=== PATIENT | male | born 1940 | race Caucasian/White ===

== ENCOUNTER 2016-10-19 13:45 | Inpatient (IN) | payer MEDICARE, BC ==
[~2016-10-19] VITALS: Ht 172.7 cm; Wt 40.4 kg
[~2016-10-19 13:45] MED LIST: ALB0.5V INH; ALBU2.5V12 INH; APIX2.5T2 PO; ATOR10TA PO; AZTH250C PO; CEFD300C PO; CHOL10002 PO; CLPD75T PO; LORA0.5T PO; MIRT15TA8 PO; SODIUM CHLORIDE IH; TIOT18CA IH
--- OUTSIDE RECORDS SUMMARY | 2016-10-19 13:49 | XMS REPORT | Continuity of Care Document ---
Author Author [facility] Organization [facility] Address Unknown Phone Unavailable Care Team Providers Care Laborer [place]bark Name Role Phone MUKUL, ISABELLA Beckman MD PCP [phone] Insurance Providers Payer Name Policy Number Subscriber Name Relationship Medicare A And B [id number] Lili Murillo 17 Self / Same As Patient [facility] [id number] Lili Murillo Self / Same As Patient Chief Complaint and Reason for Visit Chief Complaint PNEUMONIA Reason for Visit Pneumonia COPD exacerbation Sepsis CHF (congestive heart failure) Atrial fib/flutter, transient Steroid-induced psychosis, with hallucinations Problems Medical Problems Problem Onset Date Status Pneumonia 12/19/2014 Active COPD exacerbation 12/19/2014 Active Sepsis 12/19/2014 Active CHF (congestive heart failure) 12/19/2014 Active Atrial fib/flutter, transient Unknown Active Steroid-induced psychosis, with hallucinations Unknown Active Medications Medication Dose Route Sig Days/Qty Instructions Order Date Discontinued Date Status Clopidogrel Bisulfate (Plavix) 75 Mg ORAL DAILY 12/19/14 12/25/14 Discontinued Atorvastatin 10 Mg ORAL DAILY 12/19/14 Active Mirtazapine 15 Mg ORAL BEDTIME 12/19/14 Active Tiotropium [place] 18 Mcg RESPIRATORY (INHALATION) DAILY@1700 1 Qty Active [Sodium Cl For Inhalation] 4 Ml RESPIRATORY (INHALATION) TWICE A DAY 5 Days 12/25/14 Active Lorazepam 0.5 Mg ORAL EVERY 4 HRS ON SCHEDULE PRN anxiety 10 Qty Active Cholecalciferol 2,000 Unit ORAL DAILY 60 Qty 12/25/14 Active Cefdinir (Omnicef) 300 Mg ORAL EVERY 12 HRS ON SCHEDULE 20 Qty Active Azithromycin 250 Mg ORAL DAILY 3 Qty 12/25/14 Active Apixaban 5 Mg ORAL TWICE A DAY 60 Qty 12/25/14 Active Albuterol 2.5 Mg RESPIRATORY (INHALATION) FOUR TIMES DAILY 120 Qty Active Albuterol Sulfate 2.5 Mg RESPIRATORY (INHALATION) Q2H PRN DYSPNEA 30 Qty 12/25/14 Active Social History No social history. Hospital Discharge Instructions Patient's Instructions Instructions Orders DISCHARGE: Discharge to:: SNF Xfer Skilled Nurse Facill Plan of Care Discharge Date 12/25/14 2:15pm Disposition 03 XFER [facility] Instructions/Education Provided Congestive Heart Failure (GEN) Prescriptions See Medications Section Functional Status No functional status results. Allergies, Adverse Reactions, Alerts Allergen Type Severity Reaction Status Last Updated No Known Drug Allergies Active 12/19/14 Immunizations No immunization records. Vital Signs Acute Vital Signs Vital Response Date/Time Temperature (Fahrenheit) 98.8 Pulse 81 bpm Respirations 16 Height 5 ft 7 in Weight 118 lb Body Mass Index 18.5 kg/m^2 Results Test Source Date Result Interp. Ref. Range Comments Absolute Band Neutrophils December 23, 2014 6:00am 0.6 # Collected by nurse? N Activated Partial Thromboplast Time December 19, 2014 1:17pm 40.0 SEC H 24.9-35.9 Alanine Aminotransferase (ALT/SGPT) December 19, 2014 1:17pm 16 U/L L 30- 65 Albumin December 19, 2014 1:17pm 3.8 g/dL N 3.4-5.0 Albumin/Globulin Ratio December 19, 2014 1:17pm 1.117 N 1.1-1.8 Alkaline Phosphatase December 19, 2014 1:17pm 85 U/L N 38-126 Anion Gap December 23, 2014 6:00am 12.0 MEQ/L N 3-15 Collected by nurse? N Aspartate Amino Transf (AST/SGOT) December 19, 2014 1:17pm 52 U/L H 15-37 B-Type Natriuretic Peptide December 24, 2014 6:00am 398 PG/ML H 0-100 Collected by nurse? N BUN/Creatinine Ratio December 23, 2014 6:00am 24 H 10-20 Collected by nurse? N Band Neutrophils % December 23, 2014 6:00am 2 % N 0-6 Collected by nurse? N Basophils # (Auto) December 19, 2014 1:17pm Basophils % (Manual) December 23, 2014 6:00am 0 % N 0-2 Collected by nurse ? N Basophils (%) (Auto) December 19, 2014 1:17pm 0-2 Blood Morphology Comment December 23, 2014 6:00am Normal NORMAL Collected by nurse? N Blood Urea Nitrogen December 23, 2014 6:00am 24 mg/dL DH 7-18 Collected by nurse? N C-Reactive Protein December 25, 2014 5:20am 4.60 MG/DL H 0.0-0.9 Collected by nurse? N Calcium Level December 23, 2014 6:00am 9.6 mg/dL N 8.8-10.8 Collected by nurse? N Calcium/Ionized Calcium Ratio December 19, 2014 1:17pm 3.9 mg/dL N 3.8-4.6 Calculated Osmolality December 19, 2014 1:17pm 276 mosm/L L 280-300 Carbon Dioxide Level December 23, 2014 6:00am 31 mmol/L H 22-29 Collected by nurse? N Chloride Level December 23, 2014 6:00am 105 mmol/L N 98-108 Collected by nurse? N Creatinine December 23, 2014 6:00am 0.98 mg/dL N 0.8-1.5 Collected by nurse? N Differential Total Cells Counted December 23, 2014 6:00am 100 Collected by nurse? N Eosinophils # December 23, 2014 6:00am 0.0 # Collected by nurse? N Eosinophils # (Auto) December 19, 2014 1:17pm Eosinophils % (Manual) December 23, 2014 6:00am 0 % N 0-4 Collected by nurse? N Eosinophils (%) (Auto) December 19, 2014 1:17pm 0-4 Estimat Glomerular Filtration Rate December 23, 2014 6:00am 90.2 Collected by nurse? N Estimated GFR (Non- December 23, 2014 6:00am 74.6 Collected by nurse? N Glucose Level December 23, 2014 6:00am 138 mg/dL H 70-110 Collected by nurse? N Hematocrit December 23, 2014 6:00am 36.90 % L 39.00-50.00 Collected by nurse? N Hemoglobin December 23, 2014 6:00am 11.9 g/dL L 13.5-17.0 Collected by nurse? N Influenza Virus Type A Antibody December 19, 2014 11:50am Negative Influenza Virus Type B Antibody December 19, 2014 11:50am Negative Lymphocytes # December 23, 2014 6:00am 3.2 # Collected by nurse? N Lymphocytes # (Auto) December 19, 2014 1:17pm Lymphocytes % (Manual) December 23, 2014 6:00am 11 % L 20-46 Collected by nurse? N Lymphocytes (%) (Auto) December 19, 2014 1:17pm 20-46 Mean Corpuscular Hemoglobin December 23, 2014 6:00am 29.6 PG N 26.0-34.0 Collected by nurse? N Mean Corpuscular Hemoglobin Concent December 23, 2014 6:00am 32.2 g/dL N 31.0-37.0 Collected by nurse? N Mean Corpuscular Volume December 23, 2014 6:00am 92 FL N 80-100 Collected by nurse? N Mean Platelet Volume December 23, 2014 6:00am 11.2 FL H 6.0-9.5 Collected by nurse? N Metamyelocytes % December 22, 2014 5:15am 1 % N 0-1 Collected by nurse? N Monocytes # December 23, 2014 6:00am 1.5 # Collected by nurse? N Monocytes # (Auto) December 19, 2014 1:17pm Monocytes % (Manual) December 23, 2014 6:00am 5 % N 3-11 Collected by nurse? N Monocytes (%) (Auto) December 19, 2014 1:17pm 3-11 Neutrophils # December 23, 2014 6:00am 23.9 # Collected by nurse? N Neutrophils # (Auto) December 19, 2014 1:17pm Neutrophils (%) (Auto) December 19, 2014 1:17pm 51-67 Platelet Count December 23, 2014 6:00am 477 10^3uL H 150-450 Collected by nurse? N Potassium Level December 23, 2014 6:00am 3.6 mmol/L N 3.5-5.1 Collected by nurse? N Prothromb Time International Ratio December 19, 2014 1:17pm 1.1 N 0.8-1.4 Prothrombin Time December 19, 2014 1:17pm 14.0 SEC N 11.9-14.2 Red Blood Count December 23, 2014 6:00am 4.02 10^6uL L 4.50-5.50 Collected by nurse? N Red Cell Distribution Width December 23, 2014 6:00am 14.8 % N 11.8-15.6 Collected by nurse? N Segmented Neutrophils % December 23, 2014 6:00am 82 % H 51-67 Collected by nurse? N Sodium Level December 23, 2014 6:00am 144 mmol/L N 135-150 Collected by nurse? N Total Bilirubin December 19, 2014 1:17pm 0.8 mg/dL N 0.1-1.0 Total Protein December 19, 2014 1:17pm 7.2 g/dL N 6.4-8.5 Urine Bacteria December 19, 2014 1:30pm None seen /HPF Urine collection method Clean Catch Urine Bilirubin December 19, 2014 1:30pm 1+ H Negative Indican, Lodine metabolite and atypical colors mayinterfere with the interpretation of the Bilirubin reaction. Further testing is required for confirmation. Urine Clarity December 19, 2014 1:30pm Clear Urine collection method Clean Catch Urine Collection Type December 19, 2014 1:30pm Catheter Urine collection method Clean Catch Urine Color December 19, 2014 1:30pm Dark yellow Urine collection method Clean Catch Urine Glucose (UA) December 19, 2014 1:30pm Negative Negative Urine collection method Clean Catch Urine Ketones December 19, 2014 1:30pm Negative Negative Urine collection method Clean Catch Urine Leukocyte Esterase December 19, 2014 1:30pm Negative Negative Urine collection method Clean Catch Urine Mucus December 19, 2014 1:30pm 1+ Urine collection method Clean Catch Urine Nitrite December 19, 2014 1:30pm Negative Negative Urine collection method Clean Catch Urine Protein December 19, 2014 1:30pm 2+ H Negative Urine collection method Clean Catch Urine RBC December 19, 2014 1:30pm 20-50 /HPF Urine collection method Clean Catch Urine RBC (Auto) December 19, 2014 1:30pm 2+ H Negative Urine collection method Clean Catch Urine Specific Craig December 19, 2014 1:30pm >=1.030 1.005-1.030 Urine collection method Clean Catch Urine Squamous Epithelial Cells December 19, 2014 1:30pm None /LPF Urine collection method Clean Catch Urine Urobilinogen December 19, 2014 1:30pm 0.2 mg/dL 0.2-1.0 Urine collection method Clean Catch Urine WBC December 19, 2014 1:30pm None seen /HPF Urine collection method Clean Catch Urine pH December 19, 2014 1:30pm 6.0 5.0 - 8.0 Urine collection method Clean Catch Vancomycin Level Trough December 21, 2014 8:25am 7.7 UG/ML L 10.0-15.0 Collected by nurse? N Volume Urine Centrifuged December 19, 2014 1:30pm 12 ml Urine collection method Clean Catch White Blood Count December 23, 2014 6:00am 29.20 10^3uL H 4.0-11.0 Collected by nurse? N Whole Blood Lactic Acid December 19, 2014 5:56pm 1.6 mmol/L N 0.7-2.1 Blood Culture Peripheral-:Lab Indicates After Collectio December 20, 2014 5: 06am No Growth in 4 days Gram Stain Sputum-Expectorated December 21, 2014 10:50am Procedures No known history of procedures. Encounters Encounter Location Date/Time Discharged Inpatient [facility] 12/19/14 2:48pm Registered Clinic [facility] 12/19/14 11:20am Recent Diagnosis Pneumonia COPD exacerbation Sepsis CHF (congestive heart failure) Atrial fib/flutter, transient Steroid-induced psychosis, with hallucinations
--- OUTSIDE RECORDS SUMMARY | 2016-10-19 13:51 | XMS REPORT | Continuity of Care Document ---
Author Author [facility] Organization [facility] Address Unknown Phone Unavailable Care Team Providers Care Machine Fancy Stitcher Name Role Phone MUKUL, ISABELLA Beckman MD PCP [phone] Insurance Providers Payer Name Policy Number Subscriber Name Relationship Medicare A And B [id number] Lili Murillo 17 Self / Same As Patient [facility] [id number] Lili Murillo Self / Same As Patient [...] 15 Mg ORAL BEDTIME 12/19/14 Active Tiotropium [place] 18 Mcg RESPIRATORY (INHALATION) DAILY@1700 1 Qty [...] Discharge Date 12/25/14 2:15pm Disposition 03 XFER [facility] Instructions/Education Provided Congestive Heart Failure (GEN) Prescriptions [...] Urine collection method Clean Catch Urine Specific Ophelia December 19, 2014 1:30pm >=1.030 1.005-1.030 Urine [...] procedures. Encounters Encounter Location Date/Time Discharged Inpatient [facility] 12/19/14 2:48pm Registered Clinic [facility] 12/19/14 11:20am Recent Diagnosis Pneumonia COPD exacerbation Sepsis CHF (congestive heart failure) Atrial fib/flutter, transient Steroid-induced psychosis, with hallucinations
[2016-10-19 14:16] LABS: MEAN CORPUSCULAR HEMOGLOBIN 30.9 PG (26.0-34.0); MEAN CORPUSCULAR HGB CONC 32.5 g/dL (31.0-37.0); MEAN CORPUSCULAR VOLUME 95 FL (80-100); MEAN PLATELET VOLUME 12.3 FL (6.0-9.5); PLATELET COUNT 331 10^3uL (150-450); WHITE BLOOD COUNT 17.66 10^3uL (4.0-11.0)
[2016-10-19 14:29] LABS: ALBUMIN 4.7 g/dL (3.4-5.0); ALKALINE PHOSPHATASE 100 U/L (38-126); ANION GAP 27.9 MEQ/L (3-15); BUN/CREATININE RATIO 34 (10-20); CALCULATED IONIZED CALCIUM 4.2 mg/dL (3.8-4.6); LIPASE* 129 U/L (23-300)
[2016-10-19 14:30] LABS: BAND NEUTROPHILS % 0 % (0-6); EOSINOPHILS % 4 % (0-4); LYMPHOCYTES # 6.7 #; MONOCYTES # 0.7 #; MONOCYTES % 4 % (3-11); RBC MORPH NORMAL (NORMAL); SEGMENTED NEUTROPHILS % 54 % (51-67); TOTAL CELLS COUNTED 100
--- NOTE | 2016-10-19 14:40 | Diagnostic Imaging Report ---
INDICATION: Shortness of breath, weakness. COMPARISON: 12/24/14 FINDINGS: Frontal and lateral views of the chest demonstrate large left-sided pneumothorax. There is some slight mediastinal shift. There is no infiltrate. Heart size is stable. No large effusion. Osseous structures are normal. IMPRESSION: Large left sided pneumothorax. Report called to the ER. Dictated by: Dictated on workstation # [id number]
--- NOTE | 2016-10-19 14:41 | Diagnostic Imaging Report ---
PROCEDURE: CT head without contrast. TECHNIQUE: Multiple contiguous axial images were obtained through the brain without the use of intravenous contrast. INDICATION: Weakness COMPARISON: None. IMPRESSION: FINDINGS: Mild age-related cerebral volume loss and chronic small vessel ischemic changes are present. There is no midline shift or mass effect. There is no focus of acute ischemia or hemorrhage. No extra-axial fluid collection seen. Dictated by: Dictated on workstation # [id number]
[2016-10-19] MEDS ORDERED: LIDOCAINE 1% (XYLOCAINE) 20 ML VIAL ONE (14:57)
[2016-10-19] MEDS ORDERED: LIDOCAINE 1% (XYLOCAINE) 20 ML VIAL INJ ONE (15:00)
--- NOTE | 2016-10-19 15:18 | NUR ---
Dr. Cross arrives.
--- NOTE | 2016-10-19 15:26 | NUR ---
surgeon Dr. Tomasz Cross in room.
[2016-10-19] MEDS ORDERED: MIDAZOLAM 2 MG/2 ML (VERSED) VIAL ONE (15:34)
--- NOTE | 2016-10-19 15:45 | NUR ---
See surgeon report and anesthesia report for chest tube insertion record.
--- NOTE | 2016-10-19 15:46 | NUR ---
talked with x-, she states pt told her he got sick 2 days ago, she checks in on him once a wk by telephone, says she does not know how often he eats or drinks, knows he goes to [employer] sometimes. was at [facility] 2 years ago after collapsing, brigette
--- NOTE | 2016-10-19 16:17 | Post Operative Note (E) ---
Post Op Note 10/19/16 16:14 Pre-Operative Diagnosis: Spontaneous left ptx Post-Operative Diagnosis: Same Procedure: Left thoracostomy tube Surgeon: [employer] Project Manager: None Findings: 40% pneumothorax on CXR$ Anesthesia: Local, IVCS EBL: Minimal Drains: 20fr chest tube Specimem: None Complications None Condition: Stable. Note dictated #[id number] JONAS CARDONA MD Oct 19, 2016 16:17
--- NOTE | 2016-10-19 16:37 | Diagnostic Imaging Report ---
Indication: Chest pain Portable chest 4:25 PM There is left thoracostomy tube in place with interval decompression of the left pneumothorax. There is air trapping in both lungs. Impression: There's been interval placement of a left thoracostomy tube with evacuation of the pneumothorax. Dictated by: Dictated on workstation # [id number]
[2016-10-19 17:00] VITALS: BP 155/55
[2016-10-19] MEDS ORDERED: PIPERACILLIN/TAZOBACTAM 3.375 GM (ZOSYN) VIAL IV ONE (17:25)
[2016-10-19] MEDS ORDERED: SODIUM CHLORIDE 100 ML ONE (17:28)
[2016-10-19] MEDS ORDERED: NS FLUSH 3 ML PRN IV (17:30)
[2016-10-19] MEDS ORDERED: NS FLUSH 10 ML PRN IV (17:30)
[2016-10-19] MEDS: PIPERACILLIN/TAZOBACTAM 3.375 GM in SODIUM CHLORIDE 100 ML IV SCH (17:47)
[2016-10-19] MEDS ORDERED: ONDANSETRON 2 MG/ML (Z0FRAN) 2 ML VIAL IV PRN (17:55)
[2016-10-19] MEDS ORDERED: POLYETHYLENE GLYCOL 17 GM (MIRALAX) PACKET PO PRN (17:55)
[2016-10-19] MEDS ORDERED: D5 1/2 NS IV 1,000 ML IV SCH (17:55)
[2016-10-19] MEDS ORDERED: DOCUSATE SODIUM 100 MG (COLACE) CAP PO PRN (17:55)
[2016-10-19] MEDS ORDERED: CALCIUM CARBONATE CHEWABLE 300 MG (TUMS) TABLET PO PRN (17:55)
[2016-10-19] MEDS ORDERED: MAG HYDROX/AL HYDROX/SIMETH 200-200-20/5 ML (MAG-AL PLUS) 30 ML UDC PO PRN (17:55)
[2016-10-19] MEDS ORDERED: PROMETHAZINE HCL INJ 12.5 MG in SODIUM CHLORIDE 25 ML IV PRN (17:55)
[2016-10-19] MEDS ORDERED: MAGNESIUM HYDROXIDE 80MG/ML (MILK OF MAGNESIA) 30 ML UDC PO PRN (17:55)
--- NOTE | 2016-10-19 18:24 | History and Physical (E) ---
History & Physical PCP: Pepe Myers MD CC: Confusion, weakness HPI Rad Kumari is a 76 year old male admitted from ED 10/19 where he presented from home with his ex-. Both were confused in triage but ex- reported that he was unwell and she took him to see PCP at [facility] in [place] but that "no one was there." Registered as ED patient. Patient was not verbalizing much history at all. Afebrile in ED with HR 90, RR 26, BP 122/60 , SpO2 95% on RA initially. Workup notable for WBC 17.66 with Hgb 16.1, plt 331. 54% N with no bands. Chemistry showed Na 151, BUN 42, Cr 1.23, CRP 3.70. TSH 2.18. Troponin 0.023. Serum alcohol negative. CXR showed a remarkable left pneumothorax. Surgery was consulted in ED for chest tube placement which was effective. He was admitted to ICU for further management. On arrival to unit, severely cachectic body habitus noted. Obtunded, but noted he received midazolam for chest tube placement. Pupils are sluggish but equal and reactive. He has some intermittent grimacing but isn't localizing stimuli at present. Minimal history was obtained from the limited amount of prior documentation in the medical record. No family were present during admit exam. Of note, ED physician reported that patient was mouthing some words to questions asked but apparently wasn't able to phonate. Uncertain if this is result of pneumothorax or if this is an acute or subacute problem. ED physician also asked about code status. Ex- reported she thought he was DNR but when asked, by ED physician, patient apparently responded he would want resuscitated. PMH * multi-infarct dementia * HLD * Pneumonia 2015 * COPD * Atrial fibrillation PSH None? ALLERGIES: Please see list at end of report. HOME MEDICATIONS: Please see list at end of report. FH Unknown SH Retired and . He lives alone, but his ex- does check up on him some. History of tobacco abuse. No reported alcohol or drug use. ROS Minimal review of systems available from patient because he is not answering questions very well. OBJECTIVE Vital Signs Date Time Temp Pulse Resp B/P Pulse Ox O2 Delivery O2 Flow Rate FiO2 10/19/16 17:00 96.9 87 28 99 Non-Rebreather mask 10/19/16 13:56 122/60 GEN: Obtunded. Does not withdraw to stimuli. HEENT: Eyes closed. On exam, pupils are equal, sluggish but reactive, 3 mm. Very dry oral mucosa. Marked facial and temporal wasting. Trachea midline. CV: Tachy, regular, with systolic flow murmur. LUNGS: Diminished with rapid, shallow, breathing. Some breath sounds audible onleft. ABD: Sunken, soft. Abdominal aortic bruit. EXTR: Extensive muscle wasting. INTEG: Very thin skin, dry skin, age related changes. Mottled knees. NEURO: Obtunded. Laboratory Results-14 Days 10/19/16 14:05: Absolute Band Neutrophils 0.0, Alanine Aminotransferase (ALT/SGPT) 15L, Albumin 4.7#, Albumin/Globulin Ratio 1.424, Alkaline Phosphatase 100, Anion Gap 27.9H, Aspartate Amino Transf (AST/SGOT) 38H, BUN/Creatinine Ratio 34H, Band Neutrophils % 0, Basophils # (Auto) , Basophils # (Manual) 0.0, Basophils % ( Manual) 0, Basophils (%) (Auto) , Blood Morphology Comment Normal, Blood Urea Nitrogen 42#H, C-Reactive Protein 3.70H, Calcium Level 10.2, Calcium/Ionized Calcium Ratio 4.2, Calculated Osmolality 306H, Carbon Dioxide Level 27, Chloride Level 101, Creatine Kinase MB 6.8H, Creatinine 1.23, D-Dimer 1231*H, Differential Total Cells Counted 100, Eosinophils # 0.7, Eosinophils # (Auto) , Eosinophils % (Manual) 4, Eosinophils (%) (Auto) , Estimat Glomerular Filtration Rate 69.0, Estimated GFR (Non- 57.1, Glucose Level 169#H, HIV P24 Antigen Negative, HIV-1 Antibody Rapid Screen Negative, Hematocrit 49.60, Hemoglobin 16.1, Lipase 129, Lymphocytes # 6.7, Lymphocytes # (Auto) , Lymphocytes % (Manual) 38, Lymphocytes (%) (Auto) , Mean Corpuscular Hemoglobin 30.9, Mean Corpuscular Hemoglobin Concent 32.5, Mean Corpuscular Volume 95, Mean Platelet Volume 12.3H, Metamyelocytes % 0, Monocytes # 0.7, Monocytes # (Auto) , Monocytes % (Manual) 4, Monocytes (%) (Auto) , Neutrophils # 9.5, Neutrophils # (Auto) , Neutrophils (%) (Auto) , Platelet Count 331, Potassium Level 4.4#, Prealbumin 19, Prothromb Time International Ratio 1.1, Prothrombin Time 12.1, Red Blood Count 5.21, Red Cell Distribution Width 15.7H, Segmented Neutrophils % 54, Serum Alcohol < 10.0L, Sodium Level 151H, Thyroid Stimulating Hormone (TSH) 2.18, Total Bilirubin 0.8, Total Creatine Kinase 147, Total Protein 8.0, Troponin I 0.023, White Blood Count 17.66H 10/19/16 14:50: Streptococcus Screen Negative 10/19/16 15:05: Bedside Venous Blood Total CO2 34, Blood Gas Instrument om, Blood Gas Liter Flow 10.0, Blood Gas Puncture Site R, Venous Blood Base Excess 2.0L, Venous Blood HCO3 31.0H, Venous Blood O2 Saturation (Calc) 15L, Venous Blood pCO2 at Patient Temp 89H, Venous Blood pH 7.15L, Venous Blood pO2 at Patient Temp 17*L MICRO 10/19 Blood culture PENDING 10/19 HIV Negative IMAGING 10/19/16 CHEST 1 VIEW, AP/PA ONLY* Indication: Chest pain Portable chest 4:25 PM There is left thoracostomy tube in place with interval decompression of the left pneumothorax. There is air trapping in both lungs. Impression: There's been interval placement of a left thoracostomy tube with evacuation of the pneumothorax. 10/19/16 CT HEAD WO PROCEDURE: CT head without contrast. TECHNIQUE: Multiple contiguous axial images were obtained through the brain without the use of intravenous contrast. INDICATION: Weakness COMPARISON: None. IMPRESSION: FINDINGS: Mild age-related cerebral volume loss and chronic small vessel ischemic changes are present. There is no midline shift or mass effect. There is no focus of acute ischemia or hemorrhage. No extra-axial fluid collection seen. 10/19/16 CHEST PA/LAT (2 VIEW)* INDICATION: Shortness of breath, weakness. COMPARISON: 12/24/14 FINDINGS: Frontal and lateral views of the chest demonstrate large left-sided pneumothorax. There is some slight mediastinal shift. There is no infiltrate. Heart size is stable. No large effusion. Osseous structures are normal. IMPRESSION: Large left sided pneumothorax. ASSESSMENT Rad Kumari is a 76 year old male admitted from ED 10/19 with spontaneous pneumothorax of uncertain etiology. He appeared malnourished and has reportedly had weakness and clinical demonstrates failure to thrive. He has dementia. PLAN * SIRS: Monitor for infection. Blood culture pending. Empiric pip-tazo. * Acute Respiratory Failure: Treat pneumothorax. Oxygen protocol. * Left Pneumothorax: Large air pocket noted on initial x-ray. Good resolution with chest tube placement but surgery in ED. Surgery following. Chest tube to suction. * Cachexia, Severe Protein Calorie Malnutrition: Suspect failure to thrive due to dementia. Possible food insecurity. Lawn Mower Sharpener consult. * Dysphonia, Dysphagia: ST eval swallow, eval speech. NPO until evaluated. * Dehydration: On the basis of labs, exam. Check UA. NS bolus in ED. Maintenance fluids. * Hypernatremia: Due to dehydration. IVF. Monitor trend. * Physical Deconditioning: PT/OT eval and treat if he improves. * F/E/N: NPO pending ST eval. Peripheral IV. D5 1/2 NS + 20 KCl. * Prophylaxis: SCDs * Code Status: Full code at this time. Would not be expected to survive CPR. * Dispo: Inpatient, ICU, expecting 3-4 day stay minimum. Very poor prognosis. CHRONIC ISSUES * Dementia: Observe * Atrial fibrillation: Rhythm on admit ST. Observe. Allergies/Home Medications Allergies: Coded Allergies: No Known Drug Allergies (Unverified , 12/19/14) Reported Home Medications Discontinued Medications ([Sodium Cl For Inhalation]) 4 ML IH BID Discontinued Reason: Course completed Albuterol (Proventil 0.5%) 2.5 MG INH QID Discontinued Reason: Unknown Albuterol Sulfate (Proventil 0.083%) 2.5 MG INH Q2H PRN PRN DYSPNEA Discontinued Reason: Unknown Apixaban (Eliquis) 5 MG PO BID Discontinued Reason: Unknown Atorvastatin (Lipitor) 10 MG PO DAILY (Reported) Discontinued Reason: Unknown Azithromycin (Zithromax) 250 MG PO DAILY Discontinued Reason: Unknown Cefdinir (Cefdinir) 300 MG PO Q12HR Discontinued Reason: Unknown Cholecalciferol (Vitamin D3) (Vitamin D3) 2,000 UNIT PO DAILY Discontinued Reason: Unknown Lorazepam (Ativan) 0.5 MG PO Q4HR PRN PRN anxiety Discontinued Reason: Unknown Mirtazapine (Mirtazapine) 15 MG PO HS (Reported) Discontinued Reason: Unknown Tiotropium [place] (Spiriva) 18 MCG IH DAILY@1700 Discontinued Reason: Unknown Copies to: End of Report . ANNI MEDINA MD Oct 19, 2016 18:13
[2016-10-19 19:13] VITALS: BP 151/52
[2016-10-19 20:00] VITALS: BP 123/49
[2016-10-19] MEDS: HYDROmorphone 1 MG/ML (DILAUDID) SYRINGE IV PRN (20:44)
--- NOTE | 2016-10-19 20:45 | NUR ---
Brows furrowed, 0.5 mg of 1 mg Dilaudid ordered.
--- NOTE | 2016-10-19 21:15 | NUR ---
O2 now on 3L/nc. SPO2 100%. Eyes open, shakes head yes or no, oral cares provided.
[2016-10-19 21:22] LABS: ALBUMIN 3.4 g/dL (3.4-5.0); ANION GAP 14.4 MEQ/L (3-15); PHOSPHORUS 4.2 mg/dL (2.4-4.9)
--- NOTE | 2016-10-19 21:30 | NUR ---
Ex Gabino Kumari, provided Declaration dated May 23 2016 of wishes not to artificially prolong the dying process and a DPOA. Documents copied and placed on chart. Dr. Shira CHRISTIANSON personnel analyst notified and order for DNR given.
[2016-10-19 22:00] VITALS: BP 119/42
[2016-10-20] VITALS (11 sets, daily range): BP systolic 115–149; BP diastolic 41–60
[2016-10-20] MEDS: HYDROmorphone 1 MG/ML (DILAUDID) SYRINGE IV PRN ×5 (00:59→22:45)
--- NOTE | 2016-10-20 05:29 | NUR ---
No output at 0500, bladder scanned removed H2O from bulb 7 cc's, at that time two thick clots released into tubing flushed catheter with 20 cc's NS. No other output. Message to MD synchronizer. Order to flush catheter and replace.
--- NOTE | 2016-10-20 05:54 | NUR ---
Pt is laying in bed, appears to be in no distress at this time, pt remains on 3L NC, SPO2 100%
--- NOTE | 2016-10-20 06:00 | NUR ---
Catheter flushed with 60 cc sterile water, with 60 cc's with thin red drainage, flushed again with 30 cc's sterile water, flushes easily with 30 cc's reddish return. Bulb deflated with immediate dark red clots and drainage with removal of catheter. Don flinches with palpation of right lower abdomen. 16 Fr coudet catheter inserted with no urinary output and few drops of dark red blood. Head Transfer Clerk in room, continue to monitor
[2016-10-20 06:44] LABS: MEAN CORPUSCULAR HEMOGLOBIN 31.1 PG (26.0-34.0); MEAN CORPUSCULAR HGB CONC 31.8 g/dL (31.0-37.0); MEAN CORPUSCULAR VOLUME 98 FL (80-100); PLATELET COUNT 239 10^3uL (150-450); WHITE BLOOD COUNT 18.39 10^3uL (4.0-11.0)
[2016-10-20 06:49] LABS: BAND NEUTROPHILS % 4 % (0-6); EOSINOPHILS % 0 % (0-4); LYMPHOCYTES # 1.1 #; MONOCYTES % 11 % (3-11); RBC MORPH NORMAL (NORMAL); SEGMENTED NEUTROPHILS % 79 % (51-67); TOTAL CELLS COUNTED 100
--- NOTE | 2016-10-20 07:00 | NUR ---
Report given to Pasquale ALAMO.
[2016-10-20] MEDS: PIPERACILLIN/TAZOBACTAM 3.375 GM in SODIUM CHLORIDE 100 ML IV SCH ×4 (07:07→14:23)
[2016-10-20 07:15] LABS: ALBUMIN 3.7 g/dL (3.4-5.0); ANION GAP 12.9 MEQ/L (3-15); MAGNESIUM* 2.5 mg/dL (1.6-2.3); PHOSPHORUS 5.7 mg/dL (2.4-4.9)
--- NOTE | 2016-10-20 08:03 | NUR ---
NUTRITION ASSESSMENT Level 1 Patient: Rad Kumari Age/Sex: 76/M Date Screened: 10-20-16 Weight: 88.8#/40.4 kg Height: 68 inches Primary Diagnosis: SIRS, acute respiratory failure Diet Order: NPO Relevant labs: potassium 5.5, glucose 158, phosphorus 5.7, magnesium 2.5, calcium 8.4, albumin 3.7 Food allergies: N Nutrition Assessment Criteria Age over 80: N Body Mass Index (BMI) under 19: 6 points Admission Screening Indicates Risk? 6 points Moderate/High Risk Diagnosis: 3 points TPN or PPN: N NPO or clear liquid diet: Yes Serum Glucose <70 or >180: N Hgb A1c >6.7: N/A Total: 15 points Risk Screen: __ Patient at low nutritional risk based on available data; reevaluate in 5-7 days __ Patient at moderate nutritional risk based on available data; reevaluate in 3-5 days _X_ Patient at high nutritional risk; complete Nutrition Assessment within 48 hours of admission.
[2016-10-20] MEDS ORDERED: D5 1/2 NS IV 1,000 ML IV SCH (08:20)
[2016-10-20] MEDS ORDERED: NS FLUSH 3 ML DAILY IV SCH (09:00)
--- NOTE | 2016-10-20 09:11 | Progress Note (E) ---
Progress Note Surgery note Subjective: Patient is awake but not verbally responsive. Objective: Vital signs stable and oxygen saturation is good. Patient in no distress.Lungs are clear. Minimal drainage and no air leak from the chest tube.. Postprocedure chest x-ray revealed lung to be completely reexpanded and chest tube in good position. Impression: Resolved air leak. Recommendations: Place chest tube to water seal. If no air leak later today, I will remove chest tube. JONAS CARDONA MD Oct 20, 2016 09:11
--- NOTE | 2016-10-20 09:49 | OPERATIVE REPORT ---
DATE OF OPERATION: 10/19/2016 PRE-OPERATIVE DIAGNOSIS: Spontaneous left-sided pneumothorax POST-OPERATIVE DIAGNOSIS: Spontaneous left-sided pneumothorax OPERATIVE PROCEDURE: Thoracostomy tube left 5th intercostal space SURGEON: Roddy Cross MD ANESTHESIA: Local 1% lidocaine plus IV conscious sedation, Monitored Anesthesia Services POSITION: Slightly rotated to the right with arm abducted. PREP: Chlorhexidine ESTIMATED BLOOD LOSS: Minimal INDICATIONS: This patient presented to the emergency room with progressive dyspnea and discovered to have a 40% pneumothorax on the left on chest x-ray. Request was made for placement of the chest tube. As the patient has a history of multiinfarct dementia, informed consent was obtained from his ex- who is his Medical Power of Logistic Manager. PROCEDURE NOTE: Following satisfactory induction of analgesia the patient was prepped and draped in the sterile fashion. Local anesthetic was infiltrated and a skin incision made over the 6th intercostal space mid axillary line. Additional local anesthetic was infiltrated cephalad to the incision and into the pleural space. Using blunt dissection a tunnel was created from the incision into the pleural space at the 5th intercostal space. A 20-Bruneian thoracostomy tube was advanced into the cephalad portion of the pleural space. The catheter was secured to the skin with pursestring suture of 2-0 silk and attached to Pleur-evac initially on water-seal only. Subsequently after several minutes, the Pleur-evac was attached to suction. Occlusive dressing was applied. Post-procedure chest x-ray pending.
--- NOTE | 2016-10-20 10:02 | Progress Note (E) ---
Progress Note SUBJECTIVE Overnight, had very minimal urine output. Martínez was replaced and flushes but still no significant urine. K was 5.0 yesterday, increased to 5.5 today. Got additional NS bolus last night and more NS bolus this morning. Cr up from 0.89 to 1.18. Does have about 200 ml on bladder scan. Checking renal sono. Repeat CXR shows stable chest tube. Code status was changed to DNR after family discussion last night. On exam, he is now awake and interactive. Disoriented. Slurred speech. But no facial asymmetry noted on cranial nerve exam. Updated ex- at bedside regarding ominous finding of renal failure. She doesn't think he would want to be put through dialysis. Other family are en route to hospital. OBJECTIVE Vital Signs Date Time Temp Pulse Resp B/P Pulse Ox O2 Delivery O2 Flow Rate FiO2 10/20/16 08:50 98.4 68 16 128/45 100 Nasal cannula I & O 10/19/16 10/20/16 Cumulative From/Thru 19:00 07:00 10/19/16 13:56 - 10/20/16 06:12 Intake Total 66 ml 1979 ml 2045 ml Output Total 20 ml 20 ml Balance 66 ml 1959 ml 2025 ml GEN: More awake and interactive. Able to follow commands. HEENT: EOMI, clear sclerae. Very dry oral mucosa. Hoarse voice but phonation improving. Slurred speech. CV: Tachycardia resolved. Systolic flow murmur II/. LUNGS: Diminished with less labored breathing. ABD: Sunken, soft. Abdominal aortic bruit. EXTR: Extensive muscle wasting. INTEG: Very thin skin, dry skin, age related changes. Mottled knees. NEURO: Awake, interactive, disoriented to place and time. CN II-XII appear intact. Was able to stand at bedside with assist. Lab-Past 14 Days, 35 Results 10/19/16 14:05: Absolute Band Neutrophils 0.0, Alanine Aminotransferase (ALT/SGPT) 15L, Albumin 4.7#, Albumin/Globulin Ratio 1.424, Alkaline Phosphatase 100, Anion Gap 27.9H, Aspartate Amino Transf (AST/SGOT) 38H, BUN/Creatinine Ratio 34H, Band Neutrophils % 0, Basophils # (Auto) , Basophils # (Manual) 0.0, Basophils % ( Manual) 0, Basophils (%) (Auto) , Blood Morphology Comment Normal, Blood Urea Nitrogen 42#H, C-Reactive Protein 3.70H, Calcium Level 10.2, Calcium/Ionized Calcium Ratio 4.2, Calculated Osmolality 306H, Carbon Dioxide Level 27, Chloride Level 101, Creatine Kinase MB 6.8H, Creatinine 1.23, D-Dimer 1231*H, Differential Total Cells Counted 100, Eosinophils # 0.7, Eosinophils # (Auto) , Eosinophils % (Manual) 4, Eosinophils (%) (Auto) , Estimat Glomerular Filtration Rate 69.0, Estimated GFR (Non- 57.1, Glucose Level 169#H, HIV P24 Antigen Negative, HIV-1 Antibody Rapid Screen Negative, Hematocrit 49.60, Hemoglobin 16.1, Lipase 129, Lymphocytes # 6.7, Lymphocytes # (Auto) , Lymphocytes % (Manual) 38, Lymphocytes (%) (Auto) , Mean Corpuscular Hemoglobin 30.9, Mean Corpuscular Hemoglobin Concent 32.5, Mean Corpuscular Volume 95, Mean Platelet Volume 12.3H, Metamyelocytes % 0, Monocytes # 0.7, Monocytes # (Auto) , Monocytes % (Manual) 4, Monocytes (%) (Auto) , Neutrophils # 9.5, Neutrophils # (Auto) , Neutrophils (%) (Auto) , Platelet Count 331, Potassium Level 4.4#, Prealbumin 19, Prothromb Time International Ratio 1.1, Prothrombin Time 12.1, Red Blood Count 5.21, Red Cell Distribution Width 15.7H, Segmented Neutrophils % 54, Serum Alcohol < 10.0L, Sodium Level 151H, Thyroid Stimulating Hormone (TSH) 2.09, Total Bilirubin 0.8, Total Creatine Kinase 147, Total Protein 8.0, Troponin I 0.023, White Blood Count 17.66H 10/19/16 14:50: Streptococcus Screen Negative 10/19/16 15:05: Bedside Venous Blood Total CO2 34, Blood Gas Instrument om, Blood Gas Liter Flow 10.0, Blood Gas Puncture Site R, Venous Blood Base Excess 2.0L, Venous Blood HCO3 31.0H, Venous Blood O2 Saturation (Calc) 15L, Venous Blood pCO2 at Patient Temp 89H, Venous Blood pH 7.15L, Venous Blood pO2 at Patient Temp 17*L 10/19/16 21:06: Albumin 3.4#, Anion Gap 14.4, Blood Urea Nitrogen 45H, Calcium Level 8.2#L, Carbon Dioxide Level 30H, Chloride Level 108, Creatinine 0.89, Estimat Glomerular Filtration Rate 100.3, Estimated GFR (Non- 82.9, Glucose Level 107#, Potassium Level 5.0, Sodium Level 148, Phosphorus Level 4.2 10/20/16 06:10: Absolute Band Neutrophils 0.7, Albumin 3.7, Anion Gap 12.9, Band Neutrophils % 4 , Basophils # (Auto) , Basophils # (Manual) 0.0, Basophils % (Manual) 0, Basophils (%) (Auto) , Blood Morphology Comment Normal, Blood Urea Nitrogen 43H , Calcium Level 8.4L, Carbon Dioxide Level 34H, Chloride Level 107, Creatinine 1.18, Differential Total Cells Counted 100, Eosinophils # 0.0, Eosinophils # ( Auto) , Eosinophils % (Manual) 0, Eosinophils (%) (Auto) , Estimat Glomerular Filtration Rate 72.4, Estimated GFR (Non- 59.9, Glucose Level 158#H, Hematocrit 44.30, Hemoglobin 14.1, Lymphocytes # 1.1, Lymphocytes # (Auto ) , Lymphocytes % (Manual) 6L, Lymphocytes (%) (Auto) , Magnesium Level 2.5H, Mean Corpuscular Hemoglobin 31.1, Mean Corpuscular Hemoglobin Concent 31.8, Mean Corpuscular Volume 98, Mean Platelet Volume 12.0H, Metamyelocytes % 0, Monocytes # 2.0, Monocytes # (Auto) , Monocytes % (Manual) 11, Monocytes (%) ( Auto) , Neutrophils # 14.5, Neutrophils # (Auto) , Neutrophils (%) (Auto) , Phosphorus Level 5.7#H, Platelet Count 239, Potassium Level 5.5H, Red Blood Count 4.53, Red Cell Distribution Width 15.9H, Segmented Neutrophils % 79H, Sodium Level 148, White Blood Count 18.39H MICRO 10/19 Blood culture PENDING 10/19 HIV Negative IMAGING 10/20/16 RENAL SONO: PENDING 10/20/16 CXR: Intact chest tube. No re-accumulation of pneumothorax. 10/19/16 CHEST 1 VIEW, AP/PA ONLY* Indication: Chest pain Portable chest 4:25 PM There is left thoracostomy tube in place with interval decompression of the left pneumothorax. There is air trapping in both lungs. Impression: There's been interval placement of a left thoracostomy tube with evacuation of the pneumothorax. 10/19/16 CT HEAD WO PROCEDURE: CT head without contrast. TECHNIQUE: Multiple contiguous axial images were obtained through the brain without the use of intravenous contrast. INDICATION: Weakness COMPARISON: None. IMPRESSION: FINDINGS: Mild age-related cerebral volume loss and chronic small vessel ischemic changes are present. There is no midline shift or mass effect. There is no focus of acute ischemia or hemorrhage. No extra-axial fluid collection seen. 10/19/16 CHEST PA/LAT (2 VIEW)* INDICATION: Shortness of breath, weakness. COMPARISON: 12/24/14 FINDINGS: Frontal and lateral views of the chest demonstrate large left-sided pneumothorax. There is some slight mediastinal shift. There is no infiltrate. Heart size is stable. No large effusion. Osseous structures are normal. IMPRESSION: Large left sided pneumothorax. ASSESSMENT Rad Kumari is a 76 year old male admitted from ED 10/19 with spontaneous pneumothorax of uncertain etiology. He appeared malnourished and has reportedly had weakness and clinical demonstrates failure to thrive. He has dementia. PLAN * SIRS: Monitor for infection. Blood culture pending. Empiric pip-tazo. * Acute Respiratory Failure: Treat pneumothorax. Oxygen protocol. * Left Pneumothorax: Large air pocket noted on initial x-ray. Good resolution with chest tube placement by surgery in ED. Surgery following. Chest tube to suction. * Acute Renal Failure, Anuria: Concerning for intrinsic renal injury. Renal sono pending. Martínez. Monitor fluids. * Hyperkalemia, Hyperphosphatemia: Attributed to EMANUEL. Workup as above. IVF. Consider kayexalate. Monitor tele. * Hypernatremia: Due to dehydration. Improved with IVF. Monitor trend. * Cachexia, Severe Protein Calorie Malnutrition: Suspect failure to thrive due to dementia. Possible food insecurity. [employer] Director consult (who is recommending TPN.) Holding TPN for now due to hyperkalemia. * Dysphonia, Dysphagia: ST eval swallow, eval speech. NPO until evaluated. * Dehydration: On the basis of labs, exam. Check UA (still pending due to no urine output.) NS bolus. Maintenance fluids. * Physical Deconditioning: PT/OT eval and treat if he improves. * F/E/N: NPO pending ST eval. Peripheral IV. D5 1/2 NS + 20 KCl. * Prophylaxis: SCDs * Code Status: Full code at this time. Would not be expected to survive CPR. * Dispo: Inpatient, ICU, expecting 3-4 day stay minimum. Very poor prognosis especially in light of renal failure. CHRONIC ISSUES * Dementia: Observe * Atrial fibrillation: Rhythm on admit ST. Observe. ANNI MEDINA MD Oct 20, 2016 09:30
--- NOTE | 2016-10-20 10:27 | NUR ---
NUTRITION ASSESSMENT Level II Patient: Rad Kumari Age/Sex: 76/M Date Assessed: 10-20-16 ASSESSMENT Pertinent History: Patient admitted with SIRS and acute respiratory distress, and screened at high nutritional risk secondary to severe malnutrition/cachexia. PMHx includes dementia, pneumonia, COPD and a fib. Pt. lives alone at home, though apparently his ex- checks on him. She does not know how often he eats or drinks. At his last admission in December,, pt. weighed ~120# and at that time there was concern about inability to care for himself and eat appropriately. The D/C Progress Note at that time mentioned needing home health and [facility] or possibly assisted living. I spoke with [facility] Director this morning, who said pt. has never received services from them; it is unclear if he has received any other assistance or services over the past 2 years. He is a DNR. No skin breakdown noted on admission, and there were reports of difficulty swallowing/speaking by staff. Meds/Nutrition: D5 NS Weight: 88.8#/40.4 kg Height: 68 inches Body Mass Index (BMI): 13.5 [place] Body Weight : 154#/70 kg % IBW: 57% GASTROINTESTINAL Appetite: N/A Diet Order: NPO Unintentional loss of >10 lbs. in 3 months: Yes Difficult to chew/swallow: Yes? Diabetes: N Relevant Labs: potassium 5.5, glucose 158, phosphorus 5.7, magnesium 2.5, calcium 8.4, albumin 3.7 Calculations for Nutritional Assessment Estimated calorie needs: starting goal for nutrition support with severe malnutrition = 20 kcals/kg = 810 kcals Estimated protein needs: 1.2-2.0 g/kg = 48-80 g./day DIAGNOSIS 1. Nutrition Diagnosis: Severe protein calorie malnutrition related to likely food insecurity/self-care deficit as evidenced by BMI 13.5 (malnourished), 57% IBW, cachexic/wasted appearance, and documented weight loss of ~31# over the past 1 years with prior concerns of patients inability to care for himself at home and requiring assistance with meals and home care, apparently which he did not receive. NUTRITIONAL INTERVENTION Goal: Patient will receive adequate nutrition to meet his needs in the form of nutrition support, until he can regain strength enough to swallow appropriately and take adequate p.o. nutrition. Goal is also to ensure measures are in place for his safety after D/C, which from a nutritional standpoint would be group home or regular meal-time assistance. Plan: Spoke with physician re: nutrition plan and recommended nutrition support. Because of patient's compromised respiratory status complicating dobhoff insertion and high-risk of aspiration, TPN appears to best meet his needs at this time. However, his worsening renal status with hyperkalemia is currently prohibitive from initiating TPN just yet. If/when TPN becomes feasible, recommend we initiate hypocaloric PN dosing with adequate protein according to A.S.P.E.N. clinical guidelines for the severely malnourished patient, though this may not be possible in our premixed PN solution. This would equate to a target goal of 880 kcals and 48 g. protein/day, or 35 ml/hr. (providing 890 kcals, 37 g. protein) plus additional parenteral amino acids if possible. To prevent refeeding syndrome, recommend we initiate feedings slowly, beginning at 10 kcals/kg (equivalent to 400 kcals/day, or 17 ml/hr.) and monitor for refeeding syndrome which patient is at high-risk, and gradually advance to target rate by 200-300 kcals every 1-3 days depending on labs. MONITORING & EVALUATION __ Monitor patients menu selections __ Monitor patients food intake per nursing notes __ Monitor NPO/clear liquid days _X_ Monitor lab values _X_ Monitor I&O _X_ Other--monitor for ability to initiate nutrition support
--- NOTE | 2016-10-20 11:29 | Diagnostic Imaging Report ---
INDICATION: Pneumothorax. TECHNIQUE: Single-view chest at 05:10 a.m. CORRELATION STUDY: 10/19/2016. FINDINGS: A left-sided chest tube is unchanged in position with tip over the high left lung apex. Likely trace left basilar pneumothorax. Lung young with changes of COPD. Slight asymmetric parenchymal density in the right suprahilar region. Heart size, mediastinum, and vasculature appear relatively stable. Central pulmonary arteries are somewhat prominent which could be reflective of underlying pulmonary arterial hypertension. IMPRESSION: 1. Left-sided chest tube with trace left-sided pneumothorax. Dictated by: Dictated on workstation # [id number]
--- NOTE | 2016-10-20 14:11 | ST Bedside Swallow Assmt (E) ---
Summary-S/S of Dysphagia Summary-S/S of Dysphagia Displayed Signs & Symptoms Patient could not follow directions for an oral [facility] exam. He was able to smile and demonstrated no drooping. However, all other areas were unable to be assessed. Patient was given water, and a straw. He was unable to follow directions to suck through the straw. When water was placed in his mouth with a sponge he was unable to transfer A-P, or initiate a swallow. A pea sized amount of pudding was placed on the patient's tongue and he was unable to transfer A- P. Recommend continued NPO. Initial Review Service Date/Time 10/20/16, 13:57 Primary Diagnosis: (1) Pneumothorax ICD Code: J93.9 Treatment Diagnosis: (1) Dysphagia ICD Code: R13.10 Onset Date: 10/19/16 SOC Date: Oct 20, 2016 Precautions Precaution/Isolation: Standard Precautions Fall Level: High Risk 51 or greater Resuscitation Status: Do Not Resuscitate Initial Assessment Reason for Referral: Evaluation and Treat Pertinent Medical History: Dementia Rehabilitation Potential: Poor Rehab Potential Based On current medical status Observation/Problem/Intake Observation:Status & Abilities Independently Feeds Self: No Ambulates Independently: No On mechanical ventilator/time: No Alert: Yes Cooperative: Yes Aware of difficulty: No Poor posture/positioning: Yes Reports Problem: Food/Swallow Problems: liquid>thicker foods: No Problem: thicker foods>Liquids: No Problem with swallowing pills: No Feeling lump in throat: No Pain with swallowing: No Wet/gugly voice after swallow: No Increased phlegm/mucus: Yes Pocketing/finding food: No Problem occurred: Suddenly Dysphyagia Assessment Oral-Motor Evaluation Endentuious: No Dentures in place for eval: No Natural upper teeth: Yes Natural lower teeth: Yes Dental cavities apparent: Yes Wears dentures when eating: No Inflammation around teeth: No Missing teeth: Yes Teeth decayed/discolored: Yes Awareness/Control of Secretion Awareness /control of: Wet breath sound POC POC ST Plan: Oral function evalualtion Frequency of ST: One time only Aware of Dx and Prognosis: No Aware of Risk & Benefit: No Coding Time In: 1315 Time Out: 1345 Total Minutes: 30 CPT Codes / Units: [id number] Dysphagia eval std KACI LEWIS Oct 20, 2016 14:11
[2016-10-20] MEDS ORDERED: ASPI325T4 PO (14:17)
--- NOTE | 2016-10-20 14:17 | Diagnostic Imaging Report ---
INDICATION: Renal failure TECHNIQUE: Multiple real-time grayscale sonographic images, color and duplex Doppler images were obtained of the urinary system. FINDINGS: Overall assessment is very compromised and limited. This is owing to the presence of a left-sided chest tube as well as a large amount of bowel gas and stool, particularly over the left upper quadrant significantly limiting assessment. The aortic velocity is 35 cm/sec. The RIGHT kidney measures 10.2 cm. Hypoechoic mass most compatible with cyst measures 6.5 cm in the lateral mid aspect. No hydronephrosis or nephrolithiasis is identified. No tardus parvus wave forms are identified. The maximum right renal artery velocity is 90cm/sec, renal artery/aortic ratio 2.6. The LEFT kidney measures 9.2 cm. No hydronephrosis or nephrolithiasis is identified. No tardus parvus wave forms are identified. The maximum left renal artery velocity is 112cm/sec, renal artery/aortic ratio 3.2. There is a report of a Martínez catheter. The bladder however is distended to approximately 640 mL. The catheter is not well-visualized. There is an irregular area of increased echogenicity along the posterior dependent portion of the bladder. This is nonspecific and may reflect perhaps bladder debris versus potential mass. This measures approximately 5 x 7 x 2 cm. IMPRESSION: 1. Overall this is a very limited examination. There does appear to be somewhat increased velocities within the renal arteries compared to the aortic velocity ratio which is somewhat diminished. This may be reflective of underlying systemic hypotension. Given the asymmetry, the possibility of borderline renal artery stenosis is not completely excluded. Followup imaging evaluation recommended. 2. Renal parenchyma very limited in its assessment. No evidence for overt hydronephrosis. 3. Abnormal appearance about the urinary bladder with the report of a Martínez catheter. Bladder volume is rather prominent at 640 mL despite the appearance of the catheter. The catheter balloon itself is not visualized. Additionally, there is perhaps blood, debris or even mass lesion along the posterior aspect of the urinary bladder. Dictated by: Dictated on workstation # [id number]
--- NOTE | 2016-10-20 14:38 | NUR ---
MULTIDISCIPLINARY MTG/DR. MEDINA: Pt. is not having any urine output which is concerning. Pt. had a spontaneous pneumothorax and had a chest tube placed which is not set to water seal. He is awake, interactive and has been standing at the bedside. Pt. may possibly be discharged today due to concerns for no urine output. Pt. reports he doesn't want to be transferred and we are waiting for his daughter to fly in from [place] to discuss the treatment plan further. ST will complete a swallow evaluation on Pt. No discharge needs identified at this time.
[2016-10-20] MEDS: NS FLUSH 10 ML PRN IV ×2 (15:05→22:45)
--- NOTE | 2016-10-20 15:05 | NUR ---
Dilaudid 1 mg slow IV push as ordered by Dr Cross prior to DC CT L side
--- NOTE | 2016-10-20 15:09 | Progress Note (E) ---
Progress Note AM CXR showed lung fully expanded. After 6 hours on water seal, no air leak. Suction reapplied to collection chamber with no air leak. After IV Dilaudid, chest tube removed, Pursestring suture tied, and dressing applied. CXR pending. JONAS CARDONA MD Oct 20, 2016 15:09
--- NOTE | 2016-10-20 15:10 | NUR ---
Dr Tay Goldstein L side CT - vaseline drsmaddison applied and taped
--- NOTE | 2016-10-20 15:20 | NUR ---
Dr Tolbert in room --> repositioning Martínez cath --> with manipulation of catheter patient expressed pain by lifting head up off bed and eyes opened wide --> balloon reinflated after patient respiratory effort became agonal
--- NOTE | 2016-10-20 15:25 | NUR ---
Daughter and ex back to bedside - orders received from Dr Tolbert - comfort care as per family request
--- NOTE | 2016-10-20 16:23 | Progress Note (E) ---
Progress Note Through afternoon, has had a decline. Chest tube was removed successfully but after he had received hydromorphone for that, he had agonal breathing. Has endured, but met with family and discussed at length his very poor prognosis and after full discussion, comfort care was selected. It was noted by his ex- and daughter that patient has been declining for several months... even losing weight over the last two years... but he had refused to seek medical care for this. They have suspected he has a cancer. Patient has transiently indicated today that he doesn't want aggressive therapies but he has complained of the urge to urinate. Concerning findings noted on renal sono. I adjusted myles but it caused him distress. Was able to get some urine return but felt flow was again obstructed so catheter was removed. Given agonal breathing, stopped further stimulation and let family be by his side. If he endures, will try later to place Coude catheter. For now, transition to comfort care. Orders placed. Surgery notified. ANNI MEDINA MD Oct 20, 2016 16:23
[2016-10-20] MEDS ORDERED: ALBUTEROL 0.083% NEB SOLUTION 2.5 MG/3 ML VIAL INH PRN (16:25)
[2016-10-20] MEDS ORDERED: ONDANSETRON 2 MG/ML (Z0FRAN) 2 ML VIAL IV PRN (16:25)
[2016-10-20] MEDS ORDERED: PROCHLORPERAZINE 25 MG (COMPAZINE) SUPP PR PRN (16:25)
[2016-10-20] MEDS ORDERED: ATROPINE SULFATE 1% OPHTH SOLN 5 ML BTL SL PRN (16:25)
[2016-10-20] MEDS ORDERED: ARTIFICIAL TEARS (REFRESH) OPHTHALMIC DROPS OU PRN (16:25)
[2016-10-20] MEDS ORDERED: BISACODYL 10 MG SUPP (DULCOLAX) PR PRN (16:25)
[2016-10-20] MEDS ORDERED: LORazepam 2 MG/ML (ATIVAN) 1 ML VIAL IV PRN (16:25)
--- NOTE | 2016-10-20 16:30 | NUR ---
Oral care, reposition to L side with pillow supports - family in room
[2016-10-20] MEDS ORDERED: NS FLUSH 3 ML PRN IV (17:00)
[2016-10-20 17:37] LABS: ALBUMIN 3.1 g/dL (3.4-5.0); ANION GAP 11.2 MEQ/L (3-15); PHOSPHORUS 3.2 mg/dL (2.4-4.9)
--- NOTE | 2016-10-20 18:26 | NUR ---
MED REC COMPLETED-current med list obtained from and patient and family interview. conducted by Onel Mcclellan, PharmD Candidate.
--- NOTE | 2016-10-20 18:40 | NUR ---
Condition report given to FISH ALAMO
--- NOTE | 2016-10-20 18:45 | NUR ---
IV fluids DC'd
--- NOTE | 2016-10-20 19:00 | NUR ---
Transfer to room 319 per cart - lift transfer to bed - incontinent large amount of blood urine - care provided - O2 applied @ 2 L per nc - daughter and ex- @ bedside
[2016-10-21] MEDS: NS FLUSH 10 ML PRN IV ×2 (06:11→07:53)
[2016-10-21] MEDS: HYDROmorphone 1 MG/ML (DILAUDID) SYRINGE IV PRN ×3 (06:11→12:57)
--- NOTE | 2016-10-21 06:17 | NUR ---
Pt unresponsive most of the night. Occasionally opens his eyes and looks around. This morning pt very agitated; states he wants to get up. Grimacing noted at times; pt does state that he hurts. PRN dilaudid provided. Daughter remains at bedside throughout the night. SL x2 in place. O2 on for comfort.
--- NOTE | 2016-10-21 07:50 | NUR ---
PRN Dilaudid given at this time per verbal order from Dr Tolbert. Resprs 18, labored. Family at bedside. Denies needs.
--- NOTE | 2016-10-21 08:56 | NUR ---
Nutrition Follow Up: Noted pt.s very poor prognosis with subsequent decision for comfort care. Speech eval showed inability to follow directions and inability to swallow at all, therefore he remains NPO for his safety. Nutrition support will not be pursued at this time due to comfort care; will sign off of nutrition services unless status changes.
[2016-10-21] MEDS ORDERED: NS FLUSH 3 ML DAILY IV SCH (09:00)
--- NOTE | 2016-10-21 11:32 | Progress Note (E) ---
Progress Note SUBJECTIVE Started comfort measures yesterday. Did get some urine return from myles but removed it because it stopped. Since then he has had no catheter but has had urinary incontinence. Deferring further attempts to place catheter now. Family at bedside. He has been more awake this AM, but not very communicative. Pain and respiratory symptoms being well-controlled with hydromorphone, lorazepam. Updated family on plan of care. OBJECTIVE Vital Signs Date Time Temp Pulse Resp B/P Pulse Ox O2 Delivery O2 Flow Rate FiO2 10/20/16 20:24 97.6 82 10 115/60 80 Nasal cannula I & O 10/20/16 10/21/16 Cumulative From/Thru 19:00 07:00 10/19/16 13:56 - 10/20/16 20:10 Intake Total 2203 ml 4248 ml Output Total 50 ml 70 ml Balance 2153 ml 4178 ml GEN: Awake this AM but not very communicative. HEENT: Dry oral mucosa. Facial muscle wasting. LUNGS: Tachypneic with gasping respirations at times. ABD: Sunken, soft. Abdominal aortic bruit. EXTR: Extensive muscle wasting. INTEG: Very thin skin, dry skin, age related changes. Mottled knees. NEURO: Awake, not interacting verbally. Lab-Past 14 Days, 35 Results 10/19/16 14:05: Absolute Band Neutrophils 0.0, Alanine Aminotransferase (ALT/SGPT) 15L, Albumin 4.7#, Albumin/Globulin Ratio 1.424, Alkaline Phosphatase 100, Anion Gap 27.9H, Aspartate Amino Transf (AST/SGOT) 38H, BUN/Creatinine Ratio 34H, Band Neutrophils % 0, Basophils # (Auto) , Basophils # (Manual) 0.0, Basophils % ( Manual) 0, Basophils (%) (Auto) , Blood Morphology Comment Normal, Blood Urea Nitrogen 42#H, C-Reactive Protein 3.70H, Calcium Level 10.2, Calcium/Ionized Calcium Ratio 4.2, Calculated Osmolality 306H, Carbon Dioxide Level 27, Chloride Level 101, Creatine Kinase MB 6.8H, Creatinine 1.23, D-Dimer 1231*H, Differential Total Cells Counted 100, Eosinophils # 0.7, Eosinophils # (Auto) , Eosinophils % (Manual) 4, Eosinophils (%) (Auto) , Estimat Glomerular Filtration Rate 69.0, Estimated GFR (Non- 57.1, Glucose Level 169#H, HIV P24 Antigen Negative, HIV-1 Antibody Rapid Screen Negative, Hematocrit 49.60, Hemoglobin 16.1, Lipase 129, Lymphocytes # 6.7, Lymphocytes # (Auto) , Lymphocytes % (Manual) 38, Lymphocytes (%) (Auto) , Mean Corpuscular Hemoglobin 30.9, Mean Corpuscular Hemoglobin Concent 32.5, Mean Corpuscular Volume 95, Mean Platelet Volume 12.3H, Metamyelocytes % 0, Monocytes # 0.7, Monocytes # (Auto) , Monocytes % (Manual) 4, Monocytes (%) (Auto) , Neutrophils # 9.5, Neutrophils # (Auto) , Neutrophils (%) (Auto) , Platelet Count 331, Potassium Level 4.4#, Prealbumin 19, Prothromb Time International Ratio 1.1, Prothrombin Time 12.1, Red Blood Count 5.21, Red Cell Distribution Width 15.7H, Segmented Neutrophils % 54, Serum Alcohol < 10.0L, Sodium Level 151H, Thyroid Stimulating Hormone (TSH) 2.09, Total Bilirubin 0.8, Total Creatine Kinase 147, Total Protein 8.0, Troponin I 0.023, White Blood Count 17.66H 10/19/16 14:50: Streptococcus Screen Negative 10/19/16 15:05: Bedside Venous Blood Total CO2 34, Blood Gas Instrument om, Blood Gas Liter Flow 10.0, Blood Gas Puncture Site R, Venous Blood Base Excess 2.0L, Venous Blood HCO3 31.0H, Venous Blood O2 Saturation (Calc) 15L, Venous Blood pCO2 at Patient Temp 89H, Venous Blood pH 7.15L, Venous Blood pO2 at Patient Temp 17*L 10/19/16 21:06: Albumin 3.4#, Anion Gap 14.4, Blood Urea Nitrogen 45H, Calcium Level 8.2#L, Carbon Dioxide Level 30H, Chloride Level 108, Creatinine 0.89, Estimat Glomerular Filtration Rate 100.3, Estimated GFR (Non- 82.9, Glucose Level 107#, Potassium Level 5.0, Sodium Level 148, Phosphorus Level 4.2 10/20/16 06:10: Absolute Band Neutrophils 0.7, Albumin 3.7, Anion Gap 12.9, Band Neutrophils % 4 , Basophils # (Auto) , Basophils # (Manual) 0.0, Basophils % (Manual) 0, Basophils (%) (Auto) , Blood Morphology Comment Normal, Blood Urea Nitrogen 43H , Calcium Level 8.4L, Carbon Dioxide Level 34H, Chloride Level 107, Creatinine 1.18, Differential Total Cells Counted 100, Eosinophils # 0.0, Eosinophils # ( Auto) , Eosinophils % (Manual) 0, Eosinophils (%) (Auto) , Estimat Glomerular Filtration Rate 72.4, Estimated GFR (Non- 59.9, Glucose Level 158#H, Hematocrit 44.30, Hemoglobin 14.1, Lymphocytes # 1.1, Lymphocytes # (Auto ) , Lymphocytes % (Manual) 6L, Lymphocytes (%) (Auto) , Magnesium Level 2.5H, Mean Corpuscular Hemoglobin 31.1, Mean Corpuscular Hemoglobin Concent 31.8, Mean Corpuscular Volume 98, Mean Platelet Volume 12.0H, Metamyelocytes % 0, Monocytes # 2.0, Monocytes # (Auto) , Monocytes % (Manual) 11, Monocytes (%) ( Auto) , Neutrophils # 14.5, Neutrophils # (Auto) , Neutrophils (%) (Auto) , Phosphorus Level 5.7#H, Platelet Count 239, Potassium Level 5.5H, Red Blood Count 4.53, Red Cell Distribution Width 15.9H, Segmented Neutrophils % 79H, Sodium Level 148, White Blood Count 18.39H 10/20/16 13:05: Albumin 3.1L, Anion Gap 11.2, Blood Urea Nitrogen 36H, Calcium Level 8.2L, Carbon Dioxide Level 31H, Chloride Level 110H, Creatinine 1.18, Estimat Glomerular Filtration Rate 72.4, Estimated GFR (Non- 59.9, Glucose Level 178H, Phosphorus Level 3.2#, Potassium Level 4.4, Sodium Level 148 MICRO 10/19 Blood culture Negative 10/19 HIV Negative 10/19 Nose culture Normal pathogens IMAGING 10/20/16 US Renal W/Doppler INDICATION: Renal failure TECHNIQUE: Multiple real- time grayscale sonographic images, color and duplex Doppler images were obtained of the urinary system. FINDINGS: Overall assessment is very compromised and limited. This is owing to the presence of a left-sided chest tube as well as a large amount of bowel gas and stool, particularly over the left upper quadrant significantly limiting assessment. The aortic velocity is 35 cm/sec. The RIGHT kidney measures 10.2 cm. Hypoechoic mass most compatible with cyst measures 6.5 cm in the lateral mid aspect. No hydronephrosis or nephrolithiasis is identified. No tardus parvus wave forms are identified. The maximum right renal artery velocity is 90cm/sec, renal artery/aortic ratio 2.6. The LEFT kidney measures 9.2 cm. No hydronephrosis or nephrolithiasis is identified. No tardus parvus wave forms are identified. The maximum left renal artery velocity is 112cm/sec, renal artery/aortic ratio 3.2. There is a report of a Myles catheter. The bladder however is distended to approximately 640 mL. The catheter is not well-visualized. There is an irregular area of increased echogenicity along the posterior dependent portion of the bladder. This is nonspecific and may reflect perhaps bladder debris versus potential mass. This measures approximately 5 x 7 x 2 cm. IMPRESSION: 1. Overall this is a very limited examination. There does appear to be somewhat increased velocities within the renal arteries compared to the aortic velocity ratio which is somewhat diminished. This may be reflective of underlying systemic hypotension. Given the asymmetry, the possibility of borderline renal artery stenosis is not completely excluded. Followup imaging evaluation recommended. 2. Renal parenchyma very limited in its assessment. No evidence for overt hydronephrosis. 3. Abnormal appearance about the urinary bladder with the report of a Myles catheter. Bladder volume is rather prominent at 640 mL despite the appearance of the catheter. The catheter balloon itself is not visualized. Additionally, there is perhaps blood, debris or even mass lesion along the posterior aspect of the urinary bladder. 10/19/16 CHEST 1 VIEW, AP/PA ONLY* Indication: Chest pain Portable chest 4:25 PM There is left thoracostomy tube in place with interval decompression of the left pneumothorax. There is air trapping in both lungs. Impression: There's been interval placement of a left thoracostomy tube with evacuation of the pneumothorax. 10/19/16 CT HEAD WO PROCEDURE: CT head without contrast. TECHNIQUE: Multiple contiguous axial images were obtained through the brain without the use of intravenous contrast. INDICATION: Weakness COMPARISON: None. IMPRESSION: FINDINGS: Mild age-related cerebral volume loss and chronic small vessel ischemic changes are present. There is no midline shift or mass effect. There is no focus of acute ischemia or hemorrhage. No extra-axial fluid collection seen. 10/19/16 CHEST PA/LAT (2 VIEW)* INDICATION: Shortness of breath, weakness. COMPARISON: 12/24/14 FINDINGS: Frontal and lateral views of the chest demonstrate large left-sided pneumothorax. There is some slight mediastinal shift. There is no infiltrate. Heart size is stable. No large effusion. Osseous structures are normal. IMPRESSION: Large left sided pneumothorax. ASSESSMENT Rad Kumari is a 76 year old male admitted from ED 10/19 with spontaneous pneumothorax of uncertain etiology. He appeared malnourished and has reportedly had weakness and clinical demonstrates failure to thrive. He has dementia. He did tolerate chest tube placement for pneumothorax and this was even removed, but he had severe urinary obstruction concerning for bladder mass or clot. Given his severe cachectic state and very poor prognosis overall, family elected transition to comfort care. PLAN * Pain: Hydromorphone. * Anxiety, Respiratory Distress: Lorazepam * Secretions: Atropine * Constipation: Bowel regimen * Urinary Obstruction: Improved since admit. Does not have a catheter. Consider placement if obstruction symptoms persist. * Nausea: Ondansetron, promethazine. * Dry eye: artificial tears. * F/E/N: NPO. Peripheral IV. SL IV. * Code Status: DNR * Dispo: Comfort care. If he endures, consider transition to inpatient hospice. OTHER ACUTE ISSUES * SIRS: Monitored for infection. Blood culture negative. Empiric pip-tazo given on admit. * Acute Respiratory Failure: Treated pneumothorax. Oxygen protocol. * Left Pneumothorax: Large air pocket noted on initial x-ray. Good resolution with chest tube placement by surgery in ED. Chest tube was removed 10/20. * Acute Renal Failure, Anuria: Concerning for intrinsic renal injury but ultimately found bladder outlet obstruction. Myles did relieve some urine but removed catheter because it clogged. Has since voided so replacement of catheter deferred. * Hyperkalemia, Hyperphosphatemia: Attributed to EMANUEL. No further testing after transition to comfort care. * Hypernatremia: Due to dehydration. Improved with IVF. No further testing after transition to comfort care. * Cachexia, Severe Protein Calorie Malnutrition: Suspect failure to thrive due to dementia, possible, possible food insecurity. Molded Parts Inspector consulted but did not start nutrition therapy due to transition to comfort care. * Dysphonia, Dysphagia: ST eval showed inability to swallow. NPO. * Dehydration: On the basis of labs, exam. IVF initially. CHRONIC ISSUES * Dementia: Observe * Atrial fibrillation: Rhythm on admit ST. Observed. ANNI MEDINA MD Oct 21, 2016 11:32
--- NOTE | 2016-10-21 13:05 | NUR ---
PRN Dilaudid given at this time. Pt resting comfortably, though resprs appear gasping, shallow, rate of 36. Once Dilaudid was administered, pt's resp rate decreased significantly. Pt had approx 30 second period of apnea. Pt moved his head and arms a bit. Pt's face appears more vaelar in color. Will monitor closely. Family states that pt's son should arrive around 1430.
--- NOTE | 2016-10-21 13:32 | NUR ---
Time of pronounced 1330 by this nurse and Carolina Perera RN. assisted living coordinator, Tomasz, and Tay notified. Daughter and ex- at bedside.
--- NOTE | 2016-10-21 16:04 | NUR ---
Body released to [facility] at this time. Son, daughter, and ex- present.
--- NOTE | 2016-10-21 17:39 | Discharge Summary (E) ---
Discharge Summary (E) Admit Date/Time Oct 19, 2016 at 16:00 Discharge Date/Time Oct 21, 2016 at 13:30 Admitting Provider Mart Tolbert MD Primary Care Provider Pepe Myers MD Attending Provider Mart Tolbert MD Consulting Provider History and Present Illness See History and Physical for complete details. Rad Kumari is a 76 year old male admitted from ED 10/19 with spontaneous pneumothorax of uncertain etiology. He appeared malnourished and has reportedly had weakness and clinical demonstrates failure to thrive. He has dementia. He did tolerate chest tube placement for pneumothorax and this was even removed, but he had severe urinary obstruction concerning for bladder mass or clot. Given his severe cachectic state and very poor prognosis overall, family elected transition to comfort care. He 10/21/2016 at 1330. His body was released to [facility]. Hospital Course and Treatment * Pain: Hydromorphone. * Anxiety, Respiratory Distress: Lorazepam * Secretions: Atropine * Constipation: Bowel regimen * Urinary Obstruction: Improved since admit. Does not have a catheter. Consider placement if obstruction symptoms persist. * Nausea: Ondansetron, promethazine. * Dry eye: artificial tears. OTHER ACUTE ISSUES * SIRS: Monitored for infection. Blood culture negative to date. Empiric pip- tazo given on admit. Stopped on transition to comfort care. * Acute Respiratory Failure: Treated pneumothorax. Oxygen protocol. * Left Pneumothorax: Large air pocket noted on initial x-ray. Good resolution with chest tube placement by surgery in ED. Chest tube was removed 10/20. * Acute Renal Failure, Anuria: Concerning for intrinsic renal injury but ultimately found bladder outlet obstruction. Martínez did relieve some urine but removed catheter because it clogged. Has since voided so replacement of catheter deferred. * Hyperkalemia, Hyperphosphatemia: Attributed to EMANUEL. No further testing after transition to comfort care. * Hypernatremia: Due to dehydration. Improved with IVF. No further testing after transition to comfort care. * Cachexia, Severe Protein Calorie Malnutrition: Suspect failure to thrive due to dementia, possible, possible food insecurity. Brim Edge Trimmer consulted but did not start nutrition therapy due to transition to comfort care. * Dysphonia, Dysphagia: ST eval showed inability to swallow. NPO. * Dehydration: On the basis of labs, exam. IVF initially. CHRONIC ISSUES * Dementia: Observe * Atrial fibrillation: Rhythm on admit ST. Observed. Discharge Physicial Exam General Laboratory/Radiology Data Lab-Past 14 Days, 35 Results 10/19/16 14:05: Absolute Band Neutrophils 0.0, Alanine Aminotransferase (ALT/SGPT) 15L, Albumin 4.7#, Albumin/Globulin Ratio 1.424, Alkaline Phosphatase 100, Anion Gap 27.9H, Aspartate Amino Transf (AST/SGOT) 38H, BUN/Creatinine Ratio 34H, Band Neutrophils % 0, Basophils # (Auto) , Basophils # (Manual) 0.0, Basophils % ( Manual) 0, Basophils (%) (Auto) , Blood Morphology Comment Normal, Blood Urea Nitrogen 42#H, C-Reactive Protein 3.70H, Calcium Level 10.2, Calcium/Ionized Calcium Ratio 4.2, Calculated Osmolality 306H, Carbon Dioxide Level 27, Chloride Level 101, Creatine Kinase MB 6.8H, Creatinine 1.23, D-Dimer 1231*H, Differential Total Cells Counted 100, Eosinophils # 0.7, Eosinophils # (Auto) , Eosinophils % (Manual) 4, Eosinophils (%) (Auto) , Estimat Glomerular Filtration Rate 69.0, Estimated GFR (Non- 57.1, Glucose Level 169#H, HIV P24 Antigen Negative, HIV-1 Antibody Rapid Screen Negative, Hematocrit 49.60, Hemoglobin 16.1, Lipase 129, Lymphocytes # 6.7, Lymphocytes # (Auto) , Lymphocytes % (Manual) 38, Lymphocytes (%) (Auto) , Mean Corpuscular Hemoglobin 30.9, Mean Corpuscular Hemoglobin Concent 32.5, Mean Corpuscular Volume 95, Mean Platelet Volume 12.3H, Metamyelocytes % 0, Monocytes # 0.7, Monocytes # (Auto) , Monocytes % (Manual) 4, Monocytes (%) (Auto) , Neutrophils # 9.5, Neutrophils # (Auto) , Neutrophils (%) (Auto) , Platelet Count 331, Potassium Level 4.4#, Prealbumin 19, Prothromb Time International Ratio 1.1, Prothrombin Time 12.1, Red Blood Count 5.21, Red Cell Distribution Width 15.7H, Segmented Neutrophils % 54, Serum Alcohol < 10.0L, Sodium Level 151H, Thyroid Stimulating Hormone (TSH) 2.09, Total Bilirubin 0.8, Total Creatine Kinase 147, Total Protein 8.0, Troponin I 0.023, White Blood Count 17.66H 10/19/16 14:50: Streptococcus Screen Negative 10/19/16 15:05: Bedside Venous Blood Total CO2 34, Blood Gas Instrument om, Blood Gas Liter Flow 10.0, Blood Gas Puncture Site R, Venous Blood Base Excess 2.0L, Venous Blood HCO3 31.0H, Venous Blood O2 Saturation (Calc) 15L, Venous Blood pCO2 at Patient Temp 89H, Venous Blood pH 7.15L, Venous Blood pO2 at Patient Temp 17*L 10/19/16 21:06: Albumin 3.4#, Anion Gap 14.4, Blood Urea Nitrogen 45H, Calcium Level 8.2#L, Carbon Dioxide Level 30H, Chloride Level 108, Creatinine 0.89, Estimat Glomerular Filtration Rate 100.3, Estimated GFR (Non- 82.9, Glucose Level 107#, Potassium Level 5.0, Sodium Level 148, Phosphorus Level 4.2 10/20/16 06:10: Absolute Band Neutrophils 0.7, Albumin 3.7, Anion Gap 12.9, Band Neutrophils % 4 , Basophils # (Auto) , Basophils # (Manual) 0.0, Basophils % (Manual) 0, Basophils (%) (Auto) , Blood Morphology Comment Normal, Blood Urea Nitrogen 43H , Calcium Level 8.4L, Carbon Dioxide Level 34H, Chloride Level 107, Creatinine 1.18, Differential Total Cells Counted 100, Eosinophils # 0.0, Eosinophils # ( Auto) , Eosinophils % (Manual) 0, Eosinophils (%) (Auto) , Estimat Glomerular Filtration Rate 72.4, Estimated GFR (Non- 59.9, Glucose Level 158#H, Hematocrit 44.30, Hemoglobin 14.1, Lymphocytes # 1.1, Lymphocytes # (Auto ) , Lymphocytes % (Manual) 6L, Lymphocytes (%) (Auto) , Magnesium Level 2.5H, Mean Corpuscular Hemoglobin 31.1, Mean Corpuscular Hemoglobin Concent 31.8, Mean Corpuscular Volume 98, Mean Platelet Volume 12.0H, Metamyelocytes % 0, Monocytes # 2.0, Monocytes # (Auto) , Monocytes % (Manual) 11, Monocytes (%) ( Auto) , Neutrophils # 14.5, Neutrophils # (Auto) , Neutrophils (%) (Auto) , Phosphorus Level 5.7#H, Platelet Count 239, Potassium Level 5.5H, Red Blood Count 4.53, Red Cell Distribution Width 15.9H, Segmented Neutrophils % 79H, Sodium Level 148, White Blood Count 18.39H 10/20/16 13:05: Albumin 3.1L, Anion Gap 11.2, Blood Urea Nitrogen 36H, Calcium Level 8.2L, Carbon Dioxide Level 31H, Chloride Level 110H, Creatinine 1.18, Estimat Glomerular Filtration Rate 72.4, Estimated GFR (Non- 59.9, Glucose Level 178H, Phosphorus Level 3.2#, Potassium Level 4.4, Sodium Level 148 MICRO 10/19 Blood culture Negative 10/19 HIV Negative 10/19 Nose culture Normal pathogens IMAGING 10/20/16 US Renal W/Doppler INDICATION: Renal failure TECHNIQUE: Multiple real- time grayscale sonographic images, color and duplex Doppler images were obtained of the urinary system. FINDINGS: Overall assessment is very compromised and limited. This is owing to the presence of a left-sided chest tube as well as a large amount of bowel gas and stool, particularly over the left upper quadrant significantly limiting assessment. The aortic velocity is 35 cm/sec. The RIGHT kidney measures 10.2 cm. Hypoechoic mass most compatible with cyst measures 6.5 cm in the lateral mid aspect. No hydronephrosis or nephrolithiasis is identified. No tardus parvus wave forms are identified. The maximum right renal artery velocity is 90cm/sec, renal artery/aortic ratio 2.6. The LEFT kidney measures 9.2 cm. No hydronephrosis or nephrolithiasis is identified. No tardus parvus wave forms are identified. The maximum left renal artery velocity is 112cm/sec, renal artery/aortic ratio 3.2. There is a report of a Martínez catheter. The bladder however is distended to approximately 640 mL. The catheter is not well-visualized. There is an irregular area of increased echogenicity along the posterior dependent portion of the bladder. This is nonspecific and may reflect perhaps bladder debris versus potential mass. This measures approximately 5 x 7 x 2 cm. IMPRESSION: 1. Overall this is a very limited examination. There does appear to be somewhat increased velocities within the renal arteries compared to the aortic velocity ratio which is somewhat diminished. This may be reflective of underlying systemic hypotension. Given the asymmetry, the possibility of borderline renal artery stenosis is not completely excluded. Followup imaging evaluation recommended. 2. Renal parenchyma very limited in its assessment. No evidence for overt hydronephrosis. 3. Abnormal appearance about the urinary bladder with the report of a Martínez catheter. Bladder volume is rather prominent at 640 mL despite the appearance of the catheter. The catheter balloon itself is not visualized. Additionally, there is perhaps blood, debris or even mass lesion along the posterior aspect of the urinary bladder. 10/19/16 CHEST 1 VIEW, AP/PA ONLY* Indication: Chest pain Portable chest 4:25 PM There is left thoracostomy tube in place with interval decompression of the left pneumothorax. There is air trapping in both lungs. Impression: There's been interval placement of a left thoracostomy tube with evacuation of the pneumothorax. 10/19/16 CT HEAD WO PROCEDURE: CT head without contrast. TECHNIQUE: Multiple contiguous axial images were obtained through the brain without the use of intravenous contrast. INDICATION: Weakness COMPARISON: None. IMPRESSION: FINDINGS: Mild age-related cerebral volume loss and chronic small vessel ischemic changes are present. There is no midline shift or mass effect. There is no focus of acute ischemia or hemorrhage. No extra-axial fluid collection seen. 10/19/16 CHEST PA/LAT (2 VIEW)* INDICATION: Shortness of breath, weakness. COMPARISON: 12/24/14 FINDINGS: Frontal and lateral views of the chest demonstrate large left-sided pneumothorax. There is some slight mediastinal shift. There is no infiltrate. Heart size is stable. No large effusion. Osseous structures are normal. IMPRESSION: Large left sided pneumothorax. Discharge Disposition Body released to [facility]. Discharge Diagnosis See list above. Problems: Copies to: End of Report . MART TOLBERT MD Oct 21, 2016 17:39
== END 2016-10-21 13:30 | disposition expired | DRG 199 ==
LOC: ED 13:46 → ICU 16:00 → MED/SURG 10-20 19:20
PROVIDERS: ADMIT Internal Medicine; ATTEND Internal Medicine
PROC: 0W9B30Z Drainage of Left Pleural Cavity with Drainage Device, Percutaneous Approach (ICD-10-PCS; principal; 2016-10-19)
DX: J93.83 Other pneumothorax (principal); J96.00 Acute respiratory failure, unspecified whether with hypoxia or hypercapnia; Z66 Do not resuscitate; Z51.5 Encounter for palliative care; E43 Unspecified severe protein-calorie malnutrition; R64 Cachexia; Z68.1 Body mass index [BMI] 19.9 or less, adult; N17.9 Acute kidney failure, unspecified; R65.10 Systemic inflammatory response syndrome (SIRS) of non-infectious origin without acute organ dysfunction; F01.50 Vascular dementia, unspecified severity, without behavioral disturbance, psychotic disturbance, mood disturbance, and anxiety; R49.0 Dysphonia; E86.0 Dehydration; N13.9 Obstructive and reflux uropathy, unspecified; Z86.73 Personal history of transient ischemic attack (TIA), and cerebral infarction without residual deficits
CPT/HCPCS: 36415; 70450; 71010; 71020; 80053; 80069; 80320; 82550; 82553; 82803; 83690; 83735; 84134; 84443; 84484; 85025; 85379; 85610; 86140; 87040; 87070; 87205; 87651; 93005; 93010; 93976; 99285